=== PATIENT | male | born 1980 | race Caucasian/White ===

== ENCOUNTER 2018-01-15 20:15 | Emergency (ER) | payer BC ==
[2018-01-15] MEDS ORDERED: KETOROLAC TROMETHAMINE 60 MG/2 ML VIAL IM ONE (20:25)
[2018-01-15] MEDS ORDERED: GABAPENTIN 100 MG CAPSULE (FP) PO ONE (20:26)
[2018-01-15] MEDS ORDERED: GABAPENTIN 300 MG CAPSULE (FP) PO ONE (20:30)
[2018-01-15] MEDS ORDERED: KETOROLAC TROMETHAMINE 60 MG/2 ML VIAL ONE (20:30)
[2018-01-15] MEDS ORDERED: GABAPENTIN 300 MG CAPSULE (FP) ONE (20:32)
--- NOTE | 2018-01-15 20:34 | PDOC ---
History of Present Illness - General History Source: Patient Exam Limitations: No Limitations - History of Present Illness Initial Comments: 01/15/18 21:17 The patient is a 37 year old male with no significant past medical history who presents to the ED with pain to his right foot for several days. The patient reports trauma on his job 2 years ago where he had multiple fractures on his right foot that required pins and were removed 9 months later. He denies any foot pain since getting the pins removed, up until several days ago. He reports intermittent pain to the top and bottom of his right for the past several days. He states his foot pain is progressively worsening and is now constant. Patient is able to ambulate with a cane. He states he took naproxen with no relief of present symptoms. Denies recent injuries. Denies focal numbness/weakness/tingling. Denies fever or chills. Denies any other symptoms. PAST MEDICAL HISTORY: no significant history PAST SURGICAL HISTORY: Pins in right foot secondary to multiple fractures. FAMILY HISTORY: no pertinent history SOCIAL HISTORY: Pt lives with family and is employed. MEDICATIONS: reviewed ALLERGIES: As per nursing notes General: No fevers or chills, no weakness, no weight loss HEENT: No change in vision. No sore throat,. No ear pain CardioVascular: No chest pain or shortness of breath Respiratory:No cough, or wheezing. Gastrointestinal: no nausea, vomiting, diarrhea or constipation, No rectal bleeding Genitourinary: No dysuria, hematuria, or frequency Musculoskeletal: + right foot pain. Neurologic: No headache, vertigo, dizziness or loss of consciousness Psychiatric: nor depression Skin: No rashes or easy bruising Endocrine: no increased thirst or abnormal weight change Allergic: no skin or latex allergy All other systems reviewed and normal GENERAL: The patient is awake, alert, and fully oriented, in no acute distress. HEAD: Normal with no signs of trauma. EYES: Pupils equal, round and reactive to light, extraocular movements intact, sclera anicteric, conjunctiva clear. EXTREMITIES: + Well healed scar on dorsum of the right foot, there is no increase in warmth, erythema , swelling or ecchymosis, minimal tenderness on palpation of the dorsum of the foot. Neurovascular is intact. NEUROLOGICAL: Normal speech, normal gait. PSYCH: Normal mood, normal affect. SKIN: Warm, Dry, normal turgor, no rashes or lesions noted. <Vera,Andrys - Last Filed: 01/15/18 21:17> - General History Source: Patient Exam Limitations: No Limitations - History of Present Illness Initial Comments: 01/15/18 21:56 A portion of this note was documented by scribe services under my direction. I have reviewed the details of the note, within reason, and agree with the documentation. The case summary and management plan written by me. X-ray right foot no acute pathology there is evidence of old injury but no new acute fracture or dislocations. Assessment and plan: This is a 37-year-old male who comes in complaining of pain in his right foot. 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 Patient had an x-ray that showed no acute pathology. Patient given pain medication and discharged home. <Lynne Serrano I - Last Filed: 01/15/18 21:57> - General Chief Complaint: Pain Stated Complaint: RT FOOT PAIN Time Seen by Provider: 01/15/18 20:17 Past History <Katalina Vera - Last Filed: 01/15/18 21:17> - Suicide/Smoking/Psychosocial Hx Smoking History: Never smoked <Lynne Serrano I - Last Filed: 01/15/18 21:57> - Past Medical History Allergies/Adverse Reactions: Allergies Allergy/AdvReac Type Severity Reaction Status Date / Time aspirin Allergy Rash Verified 01/15/18 20:17 tramadol Allergy Verified 01/15/18 20:24 Home Medications: Ambulatory Orders No Home Medications 0 dose .ROUTE UTDICT 06/03/13 Oxycodone HCl/Acetaminophen [Percocet 5-325 mg Tablet] 1 - 2 tab PO Q4H PRN #20 tablet MDD 8 01/15/18 *Physical Exam - Vital Signs Last Vital Signs Temp Pulse Resp BP Pulse Ox 98.1 F 74 18 120/74 100 01/15/18 20:15 01/15/18 20:15 01/15/18 20:15 01/15/18 20:15 01/15/18 20:15 <Katalina Vera - Last Filed: 01/15/18 21:17> ED Treatment Course - Medications Given in the ED: ED Medications Discontinued Medications Generic Name Dose Route Start Last Admin Trade Name Marii PRN Reason Stop Dose Admin Gabapentin 100 mg 01/15/18 20:26 01/15/18 20:31 Neurontin - PO 01/15/18 20:27 Not Given ONCE ONE Gabapentin 300 mg 01/15/18 20:30 01/15/18 20:35 Neurontin - PO 01/15/18 20:31 300 mg ONCE ONE Administration Ketorolac Tromethamine 60 mg 01/15/18 20:25 01/15/18 20:35 Toradol Injection - IM 01/15/18 20:26 60 mg ONCE ONE Administration <Katalina Vera - Last Filed: 01/15/18 21:17> *DC/Admit/Observation/Transfer - Attestations Scribe Attestion: 01/15/18 21:17 Documentation prepared by Katalina Vera, acting as medical numerical control operator for Lynne Serrano MD <Katalina Vera - Last Filed: 01/15/18 21:17> - Discharge Dispostion Decision to Admit order: No <Lynne Serrano I - Last Filed: 01/15/18 21:57> Diagnosis at time of Disposition: Foot pain, right - Discharge Dispostion Disposition: HOME Condition at time of disposition: Stable - Prescriptions Prescriptions: Oxycodone HCl/Acetaminophen [Percocet 5-325 mg Tablet] 1 - 2 tab PO Q4H PRN #20 tablet MDD 8 PRN Reason: Pain - Patient Instructions Additional Instructions: For the pain take Percocet one or 2 tablets every 4-6 hours as needed. In addition to the Percocet take naproxen 2 tablets twice a day as needed. 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 Return to the emergency department immediately with ANY new, persistent or worsening symptoms. Continue any medications as previously prescribed by your physician. You should follow up with your primary doctor as soon as possible regarding today's emergency department visit. . Please make sure your doctor reviews the results of your emergency evaluation. Thank you for coming to the Emergency Department today for your care. It was a pleasure to see you today. Please note that your evaluation is INCOMPLETE until you follow-up with your doctor.
[2018-01-15 21:11] VITALS: BP 120/74; PULSE 74; TEMP 98.1; BMI 23.5
== END 2018-01-15 21:40 | disposition home or self-care (01) ==
LOC: FER 20:15
PROC: 3E0233Z Introduction of Anti-inflammatory into Muscle, Percutaneous Approach (ICD-10-PCS; principal; 2018-01-15)
DX: M79.671 Pain in right foot (principal); Z99.89 Dependence on other enabling machines and devices
CPT/HCPCS: 73630-TC-RT-FY; 99282-25